=== PATIENT | female | born 1955 | race Caucasian/White ===

== ENCOUNTER 2018-08-09 10:59 | Day surgery (SDC) | payer BC ==
[~2018-08-09] VITALS: Ht 152.4 cm; Wt 47.6 kg
[2018-08-09] VITALS (17 sets, daily range): BP systolic 121–148; BP diastolic 46–87
[~2018-08-09 10:59] MED LIST: BETH25TA43 PO; CARI350T PO; CITA-278 PO; INSU100C4 SQ; INSU100I25 SQ; LEVO150T8 PO; NAPR220C15 PO; TEMA30CA5 PO
[2018-08-09] MEDS ORDERED: LIDOcaine 1% (10mg/ml) 2ml vial ONE (11:18)
[2018-08-09 11:38] LABS: BASOPHILS % (AUTO) 1.1 % (0-1); EOSINOPHILS # (AUTO) 0.1 X10'3 (0-0.9); EOSINOPHILS % (AUTO) 1.4 % (0-6); HEMATOCRIT 33.6 % (35.0-45.0); HEMOGLOBIN 11.4 g/dl (12.0-16.0); LYMPHOCYTES # (AUTO) 0.9 X10'3 (1.1-4.8); LYMPHOCYTES % (AUTO) 23.4 % (21-51); MEAN CORPUSCULAR HEMOGLOBIN 30.6 PG (27.0-31.0); MEAN CORPUSCULAR HGB CONC 33.9 g/dL (33.0-36.5); MEAN CORPUSCULAR VOLUME 90.4 FL (78-98); MEAN PLATELET VOLUME 7.2 FL (7.4-10.4); MONOCYTES # (AUTO) 0.3 X10'3 (0-0.9); MONOCYTES % (AUTO) 8.6 % (2-12); NEUTROPHILS # (AUTO) 2.5 X10'3 (1.8-7.7); NEUTROPHILS % (AUTO) 65.5 % (42-75); PLATELET COUNT 292 X10'3 (140-440); RED BLOOD COUNT 3.72 X10'6 (4.20-5.60); RED CELL DISTRIBUTION WIDTH 12.5 % (11.5-14.5); WHITE BLOOD COUNT 3.8 X10'3 (4.5-11.0)
--- NOTE | 2018-08-09 12:00 | NUR ---
DR. WELLER @ BEDSIDE. AWARE OF GLUCOSE +[phone]. ORDERS GIVEN .
[2018-08-09] MEDS ORDERED: BUPIVAcaine/PF 2.5mg/ml (0.25%) 10ml vial ONE (12:02)
[2018-08-09 12:04] LABS: PARTIAL THROMBOPLASTIN TIME 26 SECONDS (22-32); PROTHROMBIN TIME 10.2 SECONDS (9.0-12.0)
[2018-08-09] MEDS ORDERED: insulin Lispro (HumaLOG) vial - multi-dose SQ ONE (12:10)
[2018-08-09] MEDS ORDERED: MIDAZolam 5mg/5ml vial ONE (12:15)
[2018-08-09] MEDS ORDERED: fentaNYL/PF 50MCG/1 ML 2ML syringe ONE (12:15)
[2018-08-09] MEDS ORDERED: insulin regular, human 10 units/0.1 ml syringe SQ ONE (12:15)
[2018-08-09 12:20] LABS: ALANINE AMINOTRANSFERASE 18 U/L (12-78); ALBUMIN 3.5 G/DL (3.4-5.0); ALBUMIN/GLOBULIN RATIO 0.9 (1.1-1.5); ALKALINE PHOSPHATASE 56 IU/L (46-116); ANION GAP 7 (8-16); ASPARTATE AMINO TRANSFERASE 13 U/L (10-37); BILIRUBIN,TOTAL 0.4 MG/DL (0.1-1.0); BLOOD UREA NITROGEN 14 MG/DL (7-18); BUN/CREATININE RATIO 16.3 (6.6-38.0); CALCIUM 8.9 MG/DL (8.5-10.1); CHLORIDE 95 MMOL/L (99-107); CREATININE 0.86 MG/DL (0.40-0.90); GLUCOSE 274 MG/DL (70-104); POTASSIUM 4.5 MMOL/L (3.5-5.1); SODIUM 133 MMOL/L (135-145); TOTAL CARBON DIOXIDE 30.9 MMOL/L (24-32); TOTAL PROTEIN 7.3 G/DL (6.4-8.2); eGFR 67 ML/MIN
[2018-08-09] MEDS ORDERED: ondansetron/PF 4mg/2ml inj IV PRN ×2 (13:05→15:10)
[2018-08-09] MEDS ORDERED: morphine 4 MG/ML inj SYRINge IV PRN ×2 (13:05)
[2018-08-09] MEDS ORDERED: meperidine/PF 25mg/ml syringe IV PRN ×3 (13:05)
[2018-08-09] MEDS ORDERED: proCHLORperazine 10 MG/2 ml inj IV PRN (13:05)
[2018-08-09] MEDS ORDERED: ringers solution, lacted 1,000 ML IV SCH (13:05)
--- NOTE | 2018-08-09 14:55 | NUR ---
Received from OR via BED , accompanied by Anesthesiologist DR WELLER and report given by Anesthesiolgist. PATIENT WAKING UP, DENIES PAIN, V/S WNL, NEUROVASCULAR CHECKS INTACT, 20G PIV LUE , SPLINT CAST DRESSING TO LEFT ANKLE CDI W/ COLD POWDER PACK AND W/ SCD ON. F/C DRAINING CLEAR YELLOW URINE. SENSATION T-12.
[2018-08-09] MEDS ORDERED: glucagon, human recombinant 1mg kit SUBCUT PRN (15:10)
[2018-08-09] MEDS ORDERED: dextrose 50%-water 50ml dispensing syringe IV PRN ×2 (15:10)
[2018-08-09] MEDS ORDERED: diphenhydrAMINE 25mg capsule PO PRN ×2 (15:10)
[2018-08-09] MEDS ORDERED: acetaminophen 325mg tablet PO PRN (15:10)
[2018-08-09] MEDS ORDERED: HYDROmorphone inj. 0.5 MG/0.5 ML DISP.SYRIN IV PRN (15:10)
[2018-08-09] MEDS ORDERED: insulin Lispro (HumaLOG) vial - multi-dose SQ SCH (15:10)
[2018-08-09] MEDS ORDERED: dextrose ORAL solution 15 GM/59 ML bottle PO PRN ×2 (15:10)
[2018-08-09] MEDS ORDERED: bisacodyl 10mg suppository rectal RC PRN (15:10)
[2018-08-09] MEDS ORDERED: MESSAGE TO PHARMACY PO ONE (15:10)
[2018-08-09] MEDS ORDERED: magnesium hydroxide 30ml (MOM) UD suspension PO PRN (15:10)
--- NOTE | 2018-08-09 15:18 | NUR ---
I have received patient report from Pipe martinez
--- NOTE | 2018-08-09 15:35 | NUR ---
PATIENT A&OX4, DENIES PAIN, V/S WNL, NEUROVASCULAR CHECKS INTACT, 20G PIV LUE , SPLINT CAST DRESSING TO LEFT ANKLE CDI W/ COLD POWDER PACK AND W/ SCD ON. F/C DRAINING CLEAR YELLOW URINE. SENSATION T-12. PATIENT TAKEN TO ORTHO WITH ALL BELONGINGS AND HOOKED UP TO MONITORS IN ROOM AND REPORT GIVEN TO HOOP COILING MACHINE OPERATOR WHO HAS TAKEN OVER PATIENT CARE.
[2018-08-09 16:43] LABS: HEMOGLOBIN A1C 8.5 % (4.5-6.2)
[2018-08-09] MEDS: ceFAZolin 1GM/D5W- ADD-VANTAGE 50 ML IV SCH (17:00)
[2018-08-09] MEDS: potassium Cl 20mEq in NS 1,000 ML IV SCH (17:00)
[2018-08-09] MEDS: aspirin 81mg tablet.DR PO SCH (17:00)
--- NOTE | 2018-08-09 18:43 | NUR ---
PATIENT REPORT RECEIVED FROM ARJUN SANABRIA.
--- NOTE | 2018-08-09 18:44 | NUR ---
I gave patient report to Kamala Agosto RN
[2018-08-09] MEDS ORDERED: vancomycin/NS 1 GM ADD-VANTAGE 250 ML IV SCH (20:00)
[2018-08-09] MEDS ORDERED: insulin glargine (Lantus) pen - multi-dose SQ SCH (21:00)
[2018-08-09] MEDS ORDERED: sennosides 8.6mg tablet PO SCH (21:00)
[2018-08-09] MEDS: HYDROcodone/acetaminophen 10/325mg tab PO PRN (21:07)
[2018-08-09] MEDS: ketorolac trometh. 30mg/ml inj. IV PRN (22:57)
--- NOTE | 2018-08-09 23:09 | NUR ---
Contacted Dr. Thomson regarding patient's 03/28 pain. Toradol given. Leg elevated and iced.
[2018-08-10] MEDS: ceFAZolin 1GM/D5W- ADD-VANTAGE 50 ML IV SCH (00:27)
[2018-08-10] MEDS: HYDROcodone/acetaminophen 10/325mg tab PO PRN ×2 (01:45→07:40)
[2018-08-10 02:00] VITALS: BP 112/58
[2018-08-10] MEDS: potassium Cl 20mEq in NS 1,000 ML IV SCH (04:26)
[2018-08-10] MEDS ORDERED: cefazolin/dext.iso 2gm/100 ML IV ONE (05:30)
[2018-08-10] MEDS ORDERED: vancomycin inj 1,500 MG in normal saline 300ml IV soln IV ONE (05:30)
[2018-08-10] MEDS ORDERED: famotidine 20mg tablet PO ONE (05:30)
[2018-08-10] MEDS ORDERED: scopolamine 1.5mg patch.TD72 TD ONE (05:30)
[2018-08-10] MEDS: ketorolac trometh. 30mg/ml inj. IV PRN (05:40)
[2018-08-10 06:00] VITALS: BP 106/57
--- NOTE | 2018-08-10 06:22 | NUR ---
PATIENT REPORT GIVEN TO JIMMY SANABRIA.
--- NOTE | 2018-08-10 06:59 | NUR ---
Patient in room ORTHO 4024. I have received report from Kamala Agosto RN and had the opportunity to ask questions and assume patient care.
[2018-08-10] MEDS ORDERED: levoTHYROXINE 75mcg tablet PO SCH (07:00)
[2018-08-10] MEDS: aspirin 81mg tablet.DR PO SCH (07:39)
[2018-08-10] MEDS ORDERED: citalopram 20mg tablet PO SCH (08:00)
[2018-08-10 09:16] LABS: BASOPHILS # (AUTO) 0.1 X10'3 (0-0.2); BASOPHILS % (AUTO) 0.7 % (0-1); EOSINOPHILS % (AUTO) 0 % (0-6); HEMATOCRIT 35.2 % (35.0-45.0); HEMOGLOBIN 11.8 g/dl (12.0-16.0); LYMPHOCYTES # (AUTO) 0.5 X10'3 (1.1-4.8); LYMPHOCYTES % (AUTO) 6.1 % (21-51); MEAN CORPUSCULAR HEMOGLOBIN 30.6 PG (27.0-31.0); MEAN CORPUSCULAR HGB CONC 33.5 g/dL (33.0-36.5); MEAN CORPUSCULAR VOLUME 91.3 FL (78-98); MEAN PLATELET VOLUME 7.8 FL (7.4-10.4); MONOCYTES # (AUTO) 0.6 X10'3 (0-0.9); MONOCYTES % (AUTO) 6.9 % (2-12); NEUTROPHILS # (AUTO) 7.1 X10'3 (1.8-7.7); NEUTROPHILS % (AUTO) 86.3 % (42-75); PLATELET COUNT 299 X10'3 (140-440); RED BLOOD COUNT 3.86 X10'6 (4.20-5.60); RED CELL DISTRIBUTION WIDTH 12.6 % (11.5-14.5); WHITE BLOOD COUNT 8.3 X10'3 (4.5-11.0)
[2018-08-10 09:29] LABS: ALBUMIN 3.4 G/DL (3.4-5.0); ANION GAP 16 (8-16); BLOOD UREA NITROGEN 14 MG/DL (7-18); BUN/CREATININE RATIO 15.1 (6.6-38.0); CALCIUM 8.8 MG/DL (8.5-10.1); CHLORIDE 93 MMOL/L (99-107); CREATININE 0.93 MG/DL (0.40-0.90); GLUCOSE 325 MG/DL (70-104); POTASSIUM 4.6 MMOL/L (3.5-5.1); SODIUM 129 MMOL/L (135-145); TOTAL CARBON DIOXIDE 20.3 MMOL/L (24-32); eGFR 61 ML/MIN
[2018-08-10 10:00] VITALS: BP 103/46
[2018-08-10] MEDS ORDERED: HYDR-4383 PO (11:14)
[2018-08-10] MEDS ORDERED: ASPI-1071 PO (11:14)
--- NOTE | 2018-08-10 12:36 | NUR ---
Patient discharged home with all belongings, educated on ankle weight bearing and directions on follow up appointment and new medications
--- NOTE | 2018-08-10 14:53 | NUR ---
DM consult, A1C 8.5; patient needs written DM education handout with verbal review and referral to outpatient DM education class. Currently in PAS and unable to give education. Will provide education when able. Pt presented to ED for fractured left ankle and is now s/p open reduction internal fixation bimalleolar ankle left. Recommend: 1. continue carb controlled diet 2. need written DM education A1C 8.5 3. Wt per rx Addendum: 08/10/18 at [address] Amended: Links added.
== END 2018-08-10 12:30 | disposition home or self-care (01) ==
LOC: PAS 10:59 → ORTHO 4S 15:06 → PAS 08-10 12:30
PROVIDERS: ATTEND Orthopaedic Surgery
DX: S82.842A Displaced bimalleolar fracture of left lower leg, initial encounter for closed fracture (principal); E10.9 Type 1 diabetes mellitus without complications; E03.9 Hypothyroidism, unspecified; X58.XXXA Exposure to other specified factors, initial encounter; Y93.89 Activity, other specified; Y92.89 Other specified places as the place of occurrence of the external cause; Y99.8 Other external cause status; Z90.49 Acquired absence of other specified parts of digestive tract; Z98.890 Other specified postprocedural states; Z79.4 Long term (current) use of insulin; Z79.899 Other long term (current) drug therapy; Z88.8 Allergy status to other drugs, medicaments and biological substances
CPT/HCPCS: 27814; 36415; 80053; 82948; 83036; 85025; 85610; 85730; 87070; 93005; 97116; 97162; 97530; A6223; A6449; C1713; J0690; J1170; J1815; J1885; J2250; J2405; J3010; J3370; J3490; J7120; Q0163; 80048; A4615; A7000; C1750; C1758; G0378

== ENCOUNTER 2018-10-02 12:03 | Outpatient (CLI) | payer BC ==
[~2018-10-02 12:03] MED LIST changes: +ASPI-1071 PO; -CITA-278 PO; +CITA20TA28 PO; +HYDR-4383 PO; -INSU100C4 SQ; -INSU100I25 SQ; -NAPR220C15 PO; -TEMA30CA5 PO
[2018-10-02 12:46] LABS: EOSINOPHILS # (AUTO) 0.1 X10'3 (0-0.9); EOSINOPHILS % (AUTO) 1.5 % (0-6); HEMATOCRIT 34.2 % (35.0-45.0); HEMOGLOBIN 11.8 g/dl (12.0-16.0); MEAN CORPUSCULAR HEMOGLOBIN 30.8 PG (27.0-31.0); MEAN CORPUSCULAR HGB CONC 34.7 g/dL (33.0-36.5); MEAN CORPUSCULAR VOLUME 88.9 FL (78-98); MEAN PLATELET VOLUME 7.4 FL (7.4-10.4); MONOCYTES # (AUTO) 0.4 X10'3 (0-0.9); MONOCYTES % (AUTO) 8.5 % (2-12); NEUTROPHILS # (AUTO) 2.7 X10'3 (1.8-7.7); PLATELET COUNT 245 X10'3 (140-440); RED BLOOD COUNT 3.85 X10'6 (4.20-5.60); RED CELL DISTRIBUTION WIDTH 13.3 % (11.5-14.5); WHITE BLOOD COUNT 4.2 X10'3 (4.5-11.0)
== END 2018-10-02 23:59 | disposition home or self-care (01) ==
LOC: VAS 12:03
PROVIDERS: ATTEND Ophthalmology
DX: I08.8 Other rheumatic multiple valve diseases (principal); I65.23 Occlusion and stenosis of bilateral carotid arteries; H47.013 Ischemic optic neuropathy, bilateral; E10.9 Type 1 diabetes mellitus without complications; Z88.2 Allergy status to sulfonamides; Z88.4 Allergy status to anesthetic agent
CPT/HCPCS: 36415; 85025; 85651; 86140; 93306; 93880

== ENCOUNTER 2018-10-08 03:54 | Inpatient (IN) | payer BC ==
[2018-10-08] VITALS (23 sets, daily range): BP systolic 91–132; BP diastolic 43–67
[~2018-10-08] VITALS: Ht 154.9 cm; Wt 46.0 kg
[2018-10-08] MEDS ORDERED: normal saline 1000ML IV soln IVB ONE (04:05)
[2018-10-08] MEDS ORDERED: morphine 4 MG/ML inj SYRINge IV PRN ×3 (04:05→06:35)
[2018-10-08] MEDS ORDERED: ondansetron/PF 4mg/2ml inj IV ONE ×2 (04:05→19:10)
[2018-10-08] MEDS ORDERED: HYDROmorphone 1 mg/ml syringe IV ONE (04:40)
[2018-10-08 05:01] LABS: BASOPHILS % (AUTO) 0.3 % (0-1); EOSINOPHILS % (AUTO) 0 % (0-6); HEMATOCRIT 36.6 % (35.0-45.0); HEMOGLOBIN 12.6 g/dl (12.0-16.0); LYMPHOCYTES # (AUTO) 0.4 X10'3 (1.1-4.8); LYMPHOCYTES % (AUTO) 4.2 % (21-51); MEAN CORPUSCULAR HEMOGLOBIN 30.7 PG (27.0-31.0); MEAN CORPUSCULAR HGB CONC 34.3 g/dL (33.0-36.5); MEAN CORPUSCULAR VOLUME 89.5 FL (78-98); MEAN PLATELET VOLUME 7.6 FL (7.4-10.4); MONOCYTES # (AUTO) 0.4 X10'3 (0-0.9); MONOCYTES % (AUTO) 3.7 % (2-12); NEUTROPHILS # (AUTO) 9.1 X10'3 (1.8-7.7); NEUTROPHILS % (AUTO) 91.8 % (42-75); PLATELET COUNT 237 X10'3 (140-440); RED BLOOD COUNT 4.09 X10'6 (4.20-5.60); RED CELL DISTRIBUTION WIDTH 13.1 % (11.5-14.5)
[2018-10-08 05:10] LABS: ALANINE AMINOTRANSFERASE 20 U/L (12-78); ALBUMIN 3.8 G/DL (3.4-5.0); ALBUMIN/GLOBULIN RATIO 1.1 (1.1-1.5); ALKALINE PHOSPHATASE 66 IU/L (46-116); ANION GAP 7 (8-16); ASPARTATE AMINO TRANSFERASE 14 U/L (10-37); BILIRUBIN,TOTAL 0.3 MG/DL (0.1-1.0); BLOOD UREA NITROGEN 17 MG/DL (7-18); BUN/CREATININE RATIO 18.1 (6.6-38.0); CALCIUM 9.1 MG/DL (8.5-10.1); CHLORIDE 97 MMOL/L (99-107); CREATININE 0.94 MG/DL (0.40-0.90); GLUCOSE 315 MG/DL (70-104); LIPASE 172 U/L (73-393); POTASSIUM 4.2 MMOL/L (3.5-5.1); SODIUM 133 MMOL/L (135-145); TOTAL CARBON DIOXIDE 28.8 MMOL/L (24-32); TOTAL PROTEIN 7.4 G/DL (6.4-8.2); eGFR 60 ML/MIN
[2018-10-08] MEDS ORDERED: proCHLORperazine 10 MG/2 ml inj IV ONE (05:20)
[2018-10-08 05:45] LABS: URINE HCG NEGATIVE (NEG)
[2018-10-08 05:47] LABS: CLARITY,URINE CLEAR (Clear); COLOR,URINE YELLOW (Yellow); GLUCOSE, URINE >=1000 mg/dl (Neg); KETONES,URINE 40 mg/dl (Neg); LEUKOCYTE ESTERASE ,URINE NEGATIVE (Neg); NITRITES, URINE NEGATIVE (Neg); OCCULT BLOOD,URINE TRACE-INTACT (Neg); PH,URINE 6.5 (4.8-8.0); PROTEIN,URINE NEGATIVE (Neg); UROBILINOGEN,URINE 0.2 E.U/dL (0.2-1.0)
[2018-10-08 05:52] LABS: UA COLLECTION TYPE CLN CATCH MIDSTREAM
[2018-10-08 05:53] LABS: BACTERIA,URINE NONE SEEN /HPF (Neg); RBC,URINE 0-2 /HPF (0-2); SQUAMOUS EPITHELIAL CELL,UR FEW /LPF (FEW); WBC,URINE NONE SEEN /HPF (0-4)
[2018-10-08] MEDS ORDERED: fentaNYL/PF 50MCG/1 ML 2ML syringe ONE (06:12)
[2018-10-08] MEDS ORDERED: midazolam 2 mg/2 ml injection ONE (06:12)
[2018-10-08] MEDS ORDERED: propofol inj 20 ML IV ONE (06:14)
[2018-10-08] MEDS ORDERED: LIDOcaine 2% (20mg/ml) 5ml vial ONE (06:14)
[2018-10-08] MEDS ORDERED: LIDOcaine 1% 30ml preserv. free vial ONE (06:14)
[2018-10-08] MEDS ORDERED: BUPIVAcaine/PF 2.5mg/ml (0.25%) 10ml vial ONE (06:15)
[2018-10-08] MEDS ORDERED: rocuronium 10mg/ml inj IV ONE (06:15)
[2018-10-08] MEDS ORDERED: proCHLORperazine 10 MG/2 ml inj IV PRN (06:35)
[2018-10-08] MEDS ORDERED: meperidine/PF 25mg/ml syringe IV PRN ×3 (06:35)
[2018-10-08] MEDS ORDERED: ondansetron/PF 4mg/2ml inj IV PRN ×2 (06:35→06:50)
[2018-10-08] MEDS ORDERED: ringers solution, lacted 1,000 ML IV SCH (06:35)
[2018-10-08] MEDS ORDERED: sevoflurane 250ml liquid IH ONE (06:44)
[2018-10-08] MEDS ORDERED: cefotetan 2gm/isosm dext IVPB 50 ML IV ONE (06:47)
[2018-10-08] MEDS ORDERED: potassium CL 20mEq in D5-1/2NS 1,000 ML IV SCH (06:47)
[2018-10-08] MEDS ORDERED: CADD PCA waste documentation MC PRN (06:50)
[2018-10-08] MEDS ORDERED: naloxone 0.4 mg/ml inj IV PRN (06:50)
[2018-10-08] MEDS ORDERED: levoTHYROXINE 75mcg tablet PO SCH (06:54)
[2018-10-08] MEDS ORDERED: HYDROmorphone/NS 1 mg/ml CADD 50 ML IV SCH (07:00)
[2018-10-08] MEDS ORDERED: ROPIVAcaine 0.5% (5mg/ml) 30ml vial ONE (07:02)
[2018-10-08] MEDS ORDERED: ondansetron/PF 4mg/2ml inj ONE (07:27)
[2018-10-08] MEDS ORDERED: ePHEDrine 50MG/ML INJ. ONE (07:27)
[2018-10-08] MEDS ORDERED: glycopyrrolate 0.2mg/ml inj ONE (07:27)
[2018-10-08] MEDS ORDERED: neostigmine methylsulfate 1 MG/ML 10ml vial ONE (07:27)
[2018-10-08] MEDS ORDERED: insulin regular, human vial - multi-dose ONE (07:31)
--- NOTE | 2018-10-08 08:03 | NUR ---
Received from OR via , accompanied by Anesthesiologist DR BORRERO and report given by Anesthesiolgist. AWAKENS TO VOICE. VITALS STABLE. ISLAND DRESSING WITH SCANT BLOOD. ADELA PAIN. ABD SOFT. OSORIO WITH CLEAR URINE.
[2018-10-08] MEDS ORDERED: esmolol inj. 10 ML IV ONE (08:13)
[2018-10-08] MEDS ORDERED: naloxone 0.4 mg/ml inj ONE (08:13)
[2018-10-08] MEDS ORDERED: insulin regular, human 10 units/0.1 ml syringe IV ONE (08:30)
[2018-10-08] MEDS: HYDROmorphone/NS 1 mg/ml CADD 50 ML IV SCH ×8 (09:12→22:55)
--- NOTE | 2018-10-08 10:03 | NUR ---
Report called to receiving nurse. Transferred via BED Belongings . Special Issues communicated to receiving nurse. AWAKE AND ORIENTED. VITALS STABLE. DRESSING DI. ADELA PAIN. TO SURGICAL RM 350B AT THIS TIME.
[2018-10-08] MEDS: aspirin 81mg tablet.DR PO SCH ×2 (11:00→17:30)
[2018-10-08] MEDS: citalopram 20mg tablet PO SCH (11:00)
[2018-10-08] MEDS: levoTHYROXINE 75mcg tablet PO SCH (11:00)
[2018-10-08] MEDS: heparin, porcine 5000 units/ml vial SQ SCH ×2 (11:30→21:09)
[2018-10-08] MEDS ORDERED: MESSAGE TO PHARMACY PO ONE (11:30)
[2018-10-08] MEDS ORDERED: glucagon, human recombinant 1mg kit SUBCUT PRN (11:30)
[2018-10-08] MEDS ORDERED: dextrose ORAL solution 15 GM/59 ML bottle PO PRN ×2 (11:30)
[2018-10-08] MEDS ORDERED: dextrose 50%-water 50ml dispensing syringe IV PRN ×2 (11:30)
[2018-10-08] MEDS: normal saline 1000ml 1,000 ML IV SCH ×2 (13:30→21:27)
[2018-10-08] MEDS: pantoprazole 40 MG vial IV SCH (13:30)
[2018-10-08] MEDS: insulin Lispro (HumaLOG) vial - multi-dose SQ SCH ×2 (17:47→21:36)
--- NOTE | 2018-10-08 18:30 | NUR ---
Patient in room [facility] 350. I have received report from Elida Gonzalez and had the opportunity to ask questions and assume patient care. Addendum: 10/08/18 at 1830 by Lindsey Rosa RN Amended: Links added.
--- NOTE | 2018-10-08 18:56 | NUR ---
Patient in room [facility] 350. I have received report from CARLEEN SANABRIA and had the opportunity to ask questions and assume patient care. Addendum: 10/08/18 at 1857 by Lindsey Rosa RN Amended: Links added.
--- NOTE | 2018-10-08 19:10 | NUR ---
call to Dr Almazan for pt having severe nausea despite med earlier with Zofran for this. received an orders to give an additional 4mg Zofran now.
[2018-10-08] MEDS: insulin glargine (Lantus) pen - multi-dose SQ SCH (21:00)
--- NOTE | 2018-10-08 21:19 | NUR ---
pt refused lantus as npo and nausea and takes tresiba in the am. did not take today due to surgery she is a brittle diabetic and felt taking lantus tonight would bottom her out. harris blood sugars off patch on her left forearm bs 247 should it was going down said she would feel more comfortable with 0ne unit of humalog tonight so she does not bottom out.
[2018-10-08] MEDS ORDERED: ketorolac trometh. 30mg/ml inj. IM ONE (22:10)
--- NOTE | 2018-10-08 22:11 | NUR ---
PT NOT TOLERATING DILADID IV FOR PAin and not using it due to it. Dr Almazan notified of this and pain 12/26 not walkimg due to the pain. toradol 30mg x1 ordered.
[2018-10-08] MEDS ORDERED: ketorolac tromethamine 15mg/ml inj. IV SCH (22:15)
[2018-10-08] MEDS ORDERED: ketorolac trometh. 30mg/ml inj. IV ONE (22:25)
--- NOTE | 2018-10-08 22:43 | NUR ---
pt c/o nausea restarting again 2.5 hours [address] Zofran given. Dr Almazan notified and orders for iv Ativan received for this.
[2018-10-08] MEDS: LORazepam 2 mg/ml vial IV PRN (22:45)
--- NOTE | 2018-10-08 22:56 | NUR ---
pt medicated with ativan iv for nausea and toradol for the pain. she is holding off on diladid cadd use due to the nausea. did use it once after zofran dose x time 4mg give and nausea came back on.
--- NOTE | 2018-10-09 00:14 | NUR ---
pt appears comfortable resting eyes closed at this time.
[2018-10-09] MEDS: HYDROmorphone/NS 1 mg/ml CADD 50 ML IV SCH ×5 (01:00→09:00)
[2018-10-09 01:15] VITALS: BP 125/64
--- NOTE | 2018-10-09 01:31 | NUR ---
resting eyes closed without s&s of distress at this time.
--- NOTE | 2018-10-09 03:30 | NUR ---
pt awake denies nausea and need for more pain med said toradol worked well for her and cadd not being used at this time.
--- NOTE | 2018-10-09 04:29 | NUR ---
pt using Is unit up to 1000. she needs walking shoe for left foot had fx ankle she got cast off not long ago. she has x5 gotten up side of bed stool and walked in place during the night.
--- NOTE | 2018-10-09 04:45 | NUR ---
pt blood sugar 251 and pt realized its going up asked for 3 units of Humalog. diabetic teaching and post op teaching done with pt and asked her to have her bring in the boot for her left ankle. she broke it 08/02/2018 and surgery and uses a boot when she walks. diabetic reaching done and encouraged her to go to out diabetic classes on Tuesdays.
[2018-10-09 04:50] LABS: BASOPHILS % (AUTO) 0.1 % (0-1); EOSINOPHILS % (AUTO) 0 % (0-6); HEMATOCRIT 31.4 % (35.0-45.0); HEMOGLOBIN 10.6 g/dl (12.0-16.0); LYMPHOCYTES # (AUTO) 0.9 X10'3 (1.1-4.8); LYMPHOCYTES % (AUTO) 6.8 % (21-51); MEAN CORPUSCULAR HEMOGLOBIN 30.1 PG (27.0-31.0); MEAN CORPUSCULAR HGB CONC 33.6 g/dL (33.0-36.5); MEAN CORPUSCULAR VOLUME 89.5 FL (78-98); MEAN PLATELET VOLUME 7.7 FL (7.4-10.4); MONOCYTES # (AUTO) 0.8 X10'3 (0-0.9); MONOCYTES % (AUTO) 6.5 % (2-12); NEUTROPHILS # (AUTO) 10.8 X10'3 (1.8-7.7); NEUTROPHILS % (AUTO) 86.6 % (42-75); PLATELET COUNT 233 X10'3 (140-440); RED BLOOD COUNT 3.51 X10'6 (4.20-5.60); RED CELL DISTRIBUTION WIDTH 13.6 % (11.5-14.5); WHITE BLOOD COUNT 12.5 X10'3 (4.5-11.0)
[2018-10-09 04:52] LABS: HEMOGLOBIN A1C 8.1 % (4.5-6.2)
[2018-10-09 04:54] LABS: ALBUMIN 2.9 G/DL (3.4-5.0); ANION GAP 7 (8-16); BLOOD UREA NITROGEN 15 MG/DL (7-18); BUN/CREATININE RATIO 15.6 (6.6-38.0); CALCIUM 8.8 MG/DL (8.5-10.1); CHLORIDE 101 MMOL/L (99-107); CREATININE 0.96 MG/DL (0.40-0.90); GLUCOSE 240 MG/DL (70-104); POTASSIUM 4.2 MMOL/L (3.5-5.1); SODIUM 135 MMOL/L (135-145); TOTAL CARBON DIOXIDE 27.5 MMOL/L (24-32); eGFR 59 ML/MIN
[2018-10-09] MEDS: insulin Lispro (HumaLOG) vial - multi-dose SQ SCH ×3 (04:55→18:51)
--- NOTE | 2018-10-09 05:22 | NUR ---
stood at bedside walking in place.
[2018-10-09] MEDS: ondansetron/PF 4mg/2ml inj IV PRN (05:48)
--- NOTE | 2018-10-09 05:51 | NUR ---
pt c/ nausea and medicated with 8mg of Zofran for this. prior to this was standing at the bedside.
--- NOTE | 2018-10-09 05:53 | NUR ---
pt rescanned blood sugar 247 at this time.
--- NOTE | 2018-10-09 07:01 | NUR ---
Problems reprioritized. Patient report given, questions answered & plan of care reviewed with ELHMA SANABRIA. Addendum: 10/09/18 at 0702 by Lindsey Rosa RN Amended: Links added.
[2018-10-09] MEDS: normal saline 1000ml 1,000 ML IV SCH ×2 (07:08→16:58)
[2018-10-09 07:30] VITALS: BP 110/57
[2018-10-09] MEDS: aspirin 81mg tablet.DR PO SCH ×2 (07:30→17:30)
--- NOTE | 2018-10-09 07:45 | NUR ---
Patient qualified for 3 units of insulin from a 197 blood sugar. Patient refused and stated she felt okay at 197 and did not want to take any insulin. Will continue to monitor.
[2018-10-09] MEDS: citalopram 20mg tablet PO SCH (07:59)
[2018-10-09] MEDS: levoTHYROXINE 75mcg tablet PO SCH (07:59)
[2018-10-09] MEDS: pantoprazole 40 MG vial IV SCH (07:59)
[2018-10-09] MEDS: heparin, porcine 5000 units/ml vial SQ SCH ×2 (08:00→19:52)
[2018-10-09] MEDS ORDERED: HYDROmorphone 1 mg/ml syringe IV PRN (09:55)
[2018-10-09] MEDS ORDERED: HYDROmorphone inj. 0.5 MG/0.5 ML DISP.SYRIN IV PRN (09:55)
--- NOTE | 2018-10-09 11:23 | NUR ---
Patient ambulated stand by assist, 350ft with front wheel walker, tolerated well.
[2018-10-09 11:53] VITALS: BP 123/49
--- NOTE | 2018-10-09 12:56 | NUR ---
PATIENT QUALIFIED FOR 4 UNITS OF INSULIN WITH A 213 BLOOD SUGAR LEVEL. REQUESTING TO TAKE 2 UNITS ONLY.
--- NOTE | 2018-10-09 14:18 | NUR ---
DM consult: Pt with A1c 8.1 seen at bedside. Pt refused verbal education at this time, written DM ed with referral to outpatient DM class and RD contact information provided. 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 Pt s/p exploratory laparotomy with ileocecum resection 10/08. Pt currently on a clear liquid diet and documented to have refused first meal. Pt refused Ensure Clear at this time. Pt expresses N with abdominal pain and reports no BM since surgery. LBM 10/08. Will continue to follow. Recommendations: 1) Advance to low residue CHO controlled diet as medically indicated 2) Monitor need for and acceptance of ONS 3) Monitor need for additional bowel care 4) Wt per rx Addendum: 10/09/18 at [address] Amended: Links added.
--- NOTE | 2018-10-09 18:43 | NUR ---
Problems reprioritized. Patient report given, questions answered & plan of care reviewed with DANIELE JAVIER.
[2018-10-09] MEDS: insulin glargine (Lantus) pen - multi-dose SQ SCH (20:55)
[2018-10-09] MEDS: LORazepam 2 mg/ml vial IV PRN (22:31)
--- NOTE | 2018-10-09 23:17 | NUR ---
Pt states having satanic visions. Req bible, states this has never happened to her before. Administered ativan to calm. Returned to room to find patient sleeping. When I turned off the light, the patient woke up. States she is feeling much better.
[2018-10-09 23:43] VITALS: BP 130/64
[2018-10-10] MEDS: normal saline 1000ml 1,000 ML IV SCH ×2 (04:17→15:43)
[2018-10-10] MEDS ORDERED: morphine 2 MG/ML inj. syringe IV PRN (05:25)
[2018-10-10 05:30] LABS: BASOPHILS % (AUTO) 0.3 % (0-1); EOSINOPHILS % (AUTO) 0.4 % (0-6); HEMATOCRIT 26.5 % (35.0-45.0); LYMPHOCYTES # (AUTO) 0.8 X10'3 (1.1-4.8); LYMPHOCYTES % (AUTO) 9.7 % (21-51); MEAN CORPUSCULAR HEMOGLOBIN 30.7 PG (27.0-31.0); MEAN CORPUSCULAR HGB CONC 34.1 g/dL (33.0-36.5); MEAN CORPUSCULAR VOLUME 89.9 FL (78-98); MEAN PLATELET VOLUME 7.7 FL (7.4-10.4); MONOCYTES # (AUTO) 0.6 X10'3 (0-0.9); NEUTROPHILS # (AUTO) 6.8 X10'3 (1.8-7.7); NEUTROPHILS % (AUTO) 82.6 % (42-75); PLATELET COUNT 190 X10'3 (140-440); RED BLOOD COUNT 2.95 X10'6 (4.20-5.60); RED CELL DISTRIBUTION WIDTH 13.8 % (11.5-14.5); WHITE BLOOD COUNT 8.2 X10'3 (4.5-11.0)
[2018-10-10] MEDS: morphine 2 MG/ML inj. syringe IV PRN ×2 (05:45→12:08)
[2018-10-10 05:56] LABS: ALBUMIN 2.7 G/DL (3.4-5.0); ANION GAP 9 (8-16); BLOOD UREA NITROGEN 12 MG/DL (7-18); CALCIUM 8.6 MG/DL (8.5-10.1); CHLORIDE 103 MMOL/L (99-107); CREATININE 0.75 MG/DL (0.40-0.90); GLUCOSE 160 MG/DL (70-104); POTASSIUM 3.7 MMOL/L (3.5-5.1); SODIUM 136 MMOL/L (135-145); TOTAL CARBON DIOXIDE 24.2 MMOL/L (24-32); eGFR 78 ML/MIN
--- NOTE | 2018-10-10 06:33 | NUR ---
Problems reprioritized. Patient report given, questions answered & plan of care reviewed with DANIELE Cunningham.
[2018-10-10 07:10] VITALS: BP 134/62
[2018-10-10] MEDS: citalopram 20mg tablet PO SCH (08:09)
[2018-10-10] MEDS: levoTHYROXINE 75mcg tablet PO SCH (08:09)
[2018-10-10] MEDS: aspirin 81mg tablet.DR PO SCH ×2 (08:10→17:29)
[2018-10-10] MEDS: heparin, porcine 5000 units/ml vial SQ SCH ×2 (08:11→20:13)
[2018-10-10] MEDS: pantoprazole 40 MG vial IV SCH (08:18)
[2018-10-10] MEDS: insulin Lispro (HumaLOG) vial - multi-dose SQ SCH ×2 (08:31→20:12)
[2018-10-10 11:37] VITALS: BP 131/54
--- NOTE | 2018-10-10 12:20 | NUR ---
Patient qualified for 1 unit of insulin. Refused insulin. Will continue to monitor.
[2018-10-10] MEDS: ondansetron/PF 4mg/2ml inj IV PRN (13:55)
--- NOTE | 2018-10-10 15:14 | NUR ---
Student documentation: I have reviewed all interventions, assessments performed and documented by Jose Alejandro Zaragoza and Alina Palacios nursing students.
--- NOTE | 2018-10-10 17:37 | NUR ---
pt stated she passed gas x5
--- NOTE | 2018-10-10 18:21 | NUR ---
Problems reprioritized. Patient report given, questions answered & plan of care reviewed with DANIELE Rubi.
--- NOTE | 2018-10-10 18:23 | NUR ---
Patient in room [facility]. I have received report from DANIELE Rodriguez and had the opportunity to ask questions and assume patient care. Addendum: 10/10/18 at 1824 by Cristal Montague RN Amended: Links added.
[2018-10-10 20:00] VITALS: BP 132/64
[2018-10-10] MEDS: docusate sod 100mg capsule PO SCH (20:13)
[2018-10-10] MEDS: insulin glargine (Lantus) pen - multi-dose SQ SCH (21:59)
--- NOTE | 2018-10-10 22:00 | NUR ---
patient takes her own blood sugar levels
--- NOTE | 2018-10-10 22:00 | NUR ---
patient checked her sugar and it was 129, she only wants to use 8 units of lantus and given
[2018-10-10] MEDS: temazepam 15mg capsule PO PRN (22:48)
[2018-10-11 00:24] VITALS: BP 119/50
[2018-10-11] MEDS: normal saline 1000ml 1,000 ML IV SCH (04:37)
--- NOTE | 2018-10-11 04:43 | NUR ---
patient told me that she had a low blood sugar of 47mg/dl and then took her glucose tabs and had apple juice, informed pt that we had a protocol glucose for low blood sugar, and said that she prefer to use her own, pt was not in distress, awake and oriented. re-check BS after 10 min was 53mg/dl, will continue to monitor.
--- NOTE | 2018-10-11 05:13 | NUR ---
BR re-check 105mg/dl
[2018-10-11 05:19] LABS: BASOPHILS # (AUTO) 0.1 X10'3 (0-0.2); BASOPHILS % (AUTO) 0.7 % (0-1); EOSINOPHILS # (AUTO) 0.1 X10'3 (0-0.9); EOSINOPHILS % (AUTO) 1.7 % (0-6); HEMATOCRIT 26.6 % (35.0-45.0); HEMOGLOBIN 9.1 g/dl (12.0-16.0); LYMPHOCYTES % (AUTO) 13.2 % (21-51); MEAN CORPUSCULAR HEMOGLOBIN 30.7 PG (27.0-31.0); MEAN CORPUSCULAR HGB CONC 34.2 g/dL (33.0-36.5); MEAN CORPUSCULAR VOLUME 89.7 FL (78-98); MEAN PLATELET VOLUME 7.6 FL (7.4-10.4); MONOCYTES # (AUTO) 0.6 X10'3 (0-0.9); MONOCYTES % (AUTO) 8.4 % (2-12); NEUTROPHILS # (AUTO) 5.8 X10'3 (1.8-7.7); PLATELET COUNT 236 X10'3 (140-440); RED BLOOD COUNT 2.97 X10'6 (4.20-5.60); RED CELL DISTRIBUTION WIDTH 13.8 % (11.5-14.5); WHITE BLOOD COUNT 7.7 X10'3 (4.5-11.0)
[2018-10-11 05:40] LABS: ALBUMIN 2.7 G/DL (3.4-5.0); ANION GAP 10 (8-16); BLOOD UREA NITROGEN 11 MG/DL (7-18); BUN/CREATININE RATIO 13.6 (6.6-38.0); CALCIUM 8.3 MG/DL (8.5-10.1); CHLORIDE 105 MMOL/L (99-107); CREATININE 0.81 MG/DL (0.40-0.90); GLUCOSE 72 MG/DL (70-104); POTASSIUM 3.3 MMOL/L (3.5-5.1); SODIUM 139 MMOL/L (135-145); TOTAL CARBON DIOXIDE 24.2 MMOL/L (24-32); eGFR 72 ML/MIN
--- NOTE | 2018-10-11 06:29 | NUR ---
Problems reprioritized. Patient report given, questions answered & plan of care reviewed with DANIELE Metcalf. Addendum: 10/11/18 at 0630 by Cristal Montague RN Amended: Links added.
[2018-10-11 08:00] VITALS: BP 131/81
[2018-10-11] MEDS: citalopram 20mg tablet PO SCH (08:13)
[2018-10-11] MEDS: pantoprazole 40 MG vial IV SCH (08:14)
[2018-10-11] MEDS: aspirin 81mg tablet.DR PO SCH ×2 (08:14→17:33)
[2018-10-11] MEDS: levoTHYROXINE 75mcg tablet PO SCH (08:14)
[2018-10-11] MEDS: docusate sod 100mg capsule PO SCH ×2 (08:14→21:04)
[2018-10-11] MEDS: heparin, porcine 5000 units/ml vial SQ SCH ×2 (08:15→21:04)
[2018-10-11 12:00] VITALS: BP 102/63
--- NOTE | 2018-10-11 14:00 | NUR ---
PT. REFUSED INSULIN COVERAGE FOR LUNCH CARBS, STATING THAT SHE WAS A VERY BRITTLE DIABETIC AND THAT OUR PROTOCOL WOULD LEAVE HER HYPOGLYCEMIC. SHE IS CAPABLE OF MANAGING HER DIABETES, AND "WOULD RATHER HAVE A HIGH BLOOD SUGAR THAN A LOW BLOOD SUGAR".
--- NOTE | 2018-10-11 17:04 | NUR ---
PAGER ID: [phone] MESSAGE: [id number] Suzette Smith pt. potassium 3.3. Mat we please have k replacement orders? Do you want a mag drawn? Reena [phone]
[2018-10-11] MEDS ORDERED: potassium Cl 20 mEq SR tablet PO PRN ×2 (17:15)
[2018-10-11] MEDS ORDERED: potassium Cl 40MEQ/NS 500ml 500 ML IV PRN ×2 (17:15)
[2018-10-11] MEDS: K and/or MAG REPLACEMENT MC SCH (17:31)
--- NOTE | 2018-10-11 17:33 | NUR ---
pt. educated on potassium and would like to refuse medication because of the size of the pill and the fact that it might taste bitter. Will try IV K.
[2018-10-11] MEDS ORDERED: potassium Cl 40MEQ/NS 500ml 500 ML IV ONE (17:40)
--- NOTE | 2018-10-11 18:16 | NUR ---
Patient in room [facility] 350. I have received report from DANIELE Metcalf and had the opportunity to ask questions and assume patient care. Addendum: 10/11/18 at 1816 by Cristal Montague RN Amended: Links added.
[2018-10-11] MEDS: insulin Lispro (HumaLOG) vial - multi-dose SQ SCH (18:45)
--- NOTE | 2018-10-11 19:20 | NUR ---
Gave report to Elicia SANABRIA. Pt. has no needs at this time.
[2018-10-11 20:00] VITALS: BP 135/64
[2018-10-11] MEDS: insulin glargine (Lantus) pen - multi-dose SQ SCH (21:06)
[2018-10-11] MEDS: temazepam 15mg capsule PO PRN (21:58)
[2018-10-11] MEDS ORDERED: magnesium hydroxide 30ml (MOM) UD suspension PO ONE (23:10)
[2018-10-12] VITALS: BP 114/97
--- NOTE | 2018-10-12 06:34 | NUR ---
Problems reprioritized. Patient report given, questions answered & plan of care reviewed with DANIELE Metcalf. Addendum: 10/12/18 at 0635 by Cristal Montague RN Amended: Links added.
[2018-10-12] MEDS: levoTHYROXINE 75mcg tablet PO SCH (06:42)
[2018-10-12] MEDS: aspirin 81mg tablet.DR PO SCH (06:43)
[2018-10-12] MEDS: docusate sod 100mg capsule PO SCH (06:43)
[2018-10-12] MEDS: citalopram 20mg tablet PO SCH (06:43)
[2018-10-12] MEDS: heparin, porcine 5000 units/ml vial SQ SCH (06:44)
[2018-10-12] MEDS: pantoprazole 40 MG vial IV SCH (06:51)
[2018-10-12 07:05] VITALS: BP 140/60
[2018-10-12] MEDS: K and/or MAG REPLACEMENT MC SCH (08:00)
--- NOTE | 2018-10-12 08:00 | NUR ---
PAGER ID: [phone] MESSAGE: please contact me about our patient thank you Reena [phone]
[2018-10-12] MEDS ORDERED: HYDR-4383 PO (08:16)
--- NOTE | 2018-10-12 09:54 | NUR ---
PT. DISCHARGED IN A STABLE CONDITION. REVIEWED DISCHARGE PAPERWORK, MEDICATION- [facility]CO, AND FOLLOW UP CARE WITH PT. AWARE OF 20 POUND WEIGHT RESTRICTION FOR 4 WEEKS. MD MCKINNEY CONTACT INFORMATION PROVIDED FOR FOLLOW UP. [facility]CO WRITTEN PRESCRIPTION HANDED TO PT. IV DC'D, PRESSURE BANDAGE APPLIED, NO S/SX BLEEDING NOTED. PT. LEFT WITH HER BELONGING INCLUDING HER ORTHO BOOT. SHE HAS BEEN PROVIDED WITH EDUCATION OF POSSIBLE ASE OF HER MEDICATIONS, AND EDUCATION ON WOUND CARE. ESCORTED OUT OF BUILDING TO PRIVATE VEHICLE BY HOSPITAL VOLUNTEER AND PT'S TO GO HOME.
== END 2018-10-12 09:05 | disposition home or self-care (01) | DRG 330 ==
LOC: ER 03:55 → SUR 3N 12:06
PROVIDERS: ADMIT Internal Medicine; ATTEND Internal Medicine
PROC: 0DBB0ZZ Excision of Ileum, Open Approach (ICD-10-PCS; 2018-10-08)
PROC: 0DBN0ZZ Excision of Sigmoid Colon, Open Approach (ICD-10-PCS; principal; 2018-10-08 06:44)
DX: K56.2 Volvulus (principal); R18.8 Other ascites; J44.9 Chronic obstructive pulmonary disease, unspecified; I25.10 Atherosclerotic heart disease of native coronary artery without angina pectoris; E11.65 Type 2 diabetes mellitus with hyperglycemia; E03.9 Hypothyroidism, unspecified; F32.9 Major depressive disorder, single episode, unspecified; R91.1 Solitary pulmonary nodule; Z88.2 Allergy status to sulfonamides; Z86.73 Personal history of transient ischemic attack (TIA), and cerebral infarction without residual deficits; Z88.8 Allergy status to other drugs, medicaments and biological substances; Z90.49 Acquired absence of other specified parts of digestive tract
CPT/HCPCS: 96374; 96375; 99285; Z7506; 36415; 74176; 80047; 80048; 80053; 81001; 81025; 82948; 83036; 83690; 84132; 84443; 85025; 87070; 93005; A7000; C1758; C9113; G0378; J0780; J1170; J1644; J1815; J1885; J2001; J2060; J2250; J2270; J2310; J2405; J2704; J2710; J2795; J3010; J3480; J3490; J7030; J7120

== ENCOUNTER 2021-09-17 06:57 | Emergency (ER) | payer MEDICARE ==
[~2021-09-17] VITALS: Ht 154.9 cm; Wt 46.0 kg
[~2021-09-17 06:57] MED LIST changes: -CARI350T PO
--- NOTE | 2021-09-17 07:32 | NUR ---
BG 295
--- NOTE | 2021-09-17 07:45 | NUR ---
good support for his . He confirmed that she only had thoughts of harming herself using a gun, but that she told him and he took her gun away and locked it up in a safe that she doesn't know the combination to. at bedside. Awaiting medical clearance.
[2021-09-17 08:46] LABS: BASOPHILS % (AUTO) 0.9 % (0-1); EOSINOPHILS % (AUTO) 0.8 % (0-6); HEMATOCRIT 35.4 % (35.0-45.0); HEMOGLOBIN 11.9 g/dl (12.0-16.0); LYMPHOCYTES # (AUTO) 0.7 X10'3 (1.1-4.8); LYMPHOCYTES % (AUTO) 13.4 % (21-51); MEAN CORPUSCULAR HEMOGLOBIN 30.2 PG (27.0-31.0); MEAN CORPUSCULAR HGB CONC 33.6 g/dL (33.0-36.5); MEAN CORPUSCULAR VOLUME 89.8 FL (78-98); MONOCYTES # (AUTO) 0.4 X10'3 (0-0.9); MONOCYTES % (AUTO) 8.4 % (2-12); NEUTROPHILS # (AUTO) 3.7 X10'3 (1.8-7.7); NEUTROPHILS % (AUTO) 76.5 % (42-75); PLATELET COUNT 290 X10'3 (140-440); RED BLOOD COUNT 3.95 X10'6 (4.20-5.60); RED CELL DISTRIBUTION WIDTH 13.8 % (11.5-14.5); WHITE BLOOD COUNT 4.9 X10'3 (4.5-11.0)
[2021-09-17 08:55] LABS: URINE HCG NEGATIVE (NEG)
[2021-09-17 09:00] LABS: ALANINE AMINOTRANSFERASE 16 U/L (12-78); ALBUMIN 3.4 G/DL (3.4-5.0); ALBUMIN/GLOBULIN RATIO 0.9 (1.1-1.5); ALKALINE PHOSPHATASE 112 IU/L (46-116); ANION GAP 5 (8-16); ASPARTATE AMINO TRANSFERASE 14 U/L (10-37); BILIRUBIN,TOTAL 0.3 MG/DL (0.1-1.0); BLOOD UREA NITROGEN 16 MG/DL (7-18); CALCIUM 8.6 MG/DL (8.5-10.1); CHLORIDE 100 MMOL/L (99-107); ETHANOL < 0.010 GM/DL (0.0-0.010); GLUCOSE 192 MG/DL (70-104); POTASSIUM 3.5 MMOL/L (3.5-5.1); SODIUM 136 MMOL/L (135-145); TOTAL CARBON DIOXIDE 31.3 MMOL/L (24-32); TOTAL PROTEIN 7.1 G/DL (6.4-8.2); eGFR 72 ML/MIN
--- NOTE | 2021-09-17 09:01 | NUR ---
Breakfast ordered for pt and placed at bedside. Pt diabetic and already took her insulin this morning
[2021-09-17 09:22] LABS: URINE AMPHETAMINE SCREEN NEGATIVE (Neg); URINE BARBITUATE SCREEN NEGATIVE (Neg); URINE BENZODIAZEPINES SCREEN NEGATIVE (Neg); URINE CANNABINOID SCREEN NEGATIVE (Neg); URINE COCAINE SCREEN NEGATIVE (Neg); URINE METHADONE SCREEN NEGATIVE (Neg); URINE OPIATE SCREEN NEGATIVE (Neg); URINE PHENCYCLIDINE SCREEN NEGATIVE (Neg)
--- NOTE | 2021-09-17 09:54 | NUR ---
#[phone] [facility] () #[phone] CELL
--- NOTE | 2021-09-17 09:54 | NUR ---
FAMILY UPDATED, SPOKE TO MENTAL HEALTH WORKER, SHE WILL BE BACK THIS AFTERNOON TO MEET WITH PT. SHE IS HEADED TO [facility] TO EVAULATE PTS.
[2021-09-17] MEDS ORDERED: CARI-433 PO (10:46)
[2021-09-17] MEDS ORDERED: NOVLG SQ (10:46)
[2021-09-17] MEDS ORDERED: INSU100I25 SQ ×2 (10:46→12:45)
[2021-09-17] MEDS ORDERED: CITA40TA17 PO (10:46)
[2021-09-17] MEDS ORDERED: TEMA30CA PO (10:46)
--- NOTE | 2021-09-17 11:10 | NUR ---
Received pt from [facility]
[2021-09-17] MEDS ORDERED: TRAZ-251 PO (12:33)
[2021-09-17] MEDS ORDERED: INSU100C4 SQ (12:47)
--- NOTE | 2021-09-17 13:00 | NUR ---
Pt blood sugar was 340 before lunch. Pt polite and cooperative. Pt continues to endorse some suicidal ideation.
[2021-09-17] MEDS: insulin Lispro (HumaLOG) vial - multi-dose SQ PRN ×3 (13:22→20:15)
--- NOTE | 2021-09-17 15:00 | NUR ---
Pt own sliding scale ordered and pt given 4units per sliding scale. Pt blood glucose was 383.
--- NOTE | 2021-09-17 17:00 | NUR ---
Pt lying quietly in bed without complaints.
[2021-09-17] MEDS: insulin glargine (Lantus) pen - multi-dose SQ SCH ×2 (17:32→20:18)
--- NOTE | 2021-09-17 18:06 | NUR ---
BG 386 gave 4 units
--- NOTE | 2021-09-17 19:30 | NUR ---
Patient's called and explained to PCT that he would like to take patient home tomorrow. Patient is currently denying SI, HI, A/VH but continues to endorse depression.
[2021-09-17] MEDS ORDERED: traZODone 50mg tablet PO SCH (21:00)
[2021-09-17 21:08] VITALS: BP 147/76
[2021-09-18] MEDS ORDERED: levoTHYROXINE 75mcg tablet PO SCH (07:00)
[2021-09-18] MEDS ORDERED: citalopram 20mg tablet PO SCH (08:00)
== END 2021-09-17 21:15 | disposition home or self-care (01) ==
LOC: ER 06:58
DX: F32.A Depression, unspecified (principal); Z20.822 Contact with and (suspected) exposure to COVID-19; R45.851 Suicidal ideations; E07.9 Disorder of thyroid, unspecified; Z88.2 Allergy status to sulfonamides; Z79.82 Long term (current) use of aspirin; Z79.899 Other long term (current) drug therapy; Z87.81 Personal history of (healed) traumatic fracture
CPT/HCPCS: 36415; 80053; 80305; 80320; 81025; 84443; 85025; 87635; 99285; C9803; J1815